=== PATIENT | male | born 1950 | race Caucasian/White ===

== ENCOUNTER → 2018-04-07 | Outpatient (CLI) | payer MEDICARE, OTHER ==
--- NOTE | 2018-04-07 12:45 | RADIOLOGY REPORT (SQ) ---
EXAM DESCRIPTION: MRI LUMBAR SPINE WITHOUT COMPLETED DATE/TIME: 04/07/2018 12:23 pm REASON FOR STUDY: LOW BACK PAIN M54.5 LOW BACK PAIN COMPARISON: None. TECHNIQUE: Sagittal and Axial imaging includes T1, T2, STIR and gradient echo sequences. Coronal T2/ HASTE imaging. LIMITATIONS: None. FINDINGS: VISUALIZED UPPER ABDOMEN: Limited evaluation. No acute or suspicious findings suggested. SEGMENTATION: No transitional anatomy. The lowest well-developed disc space is labeled L5-S1. ALIGNMENT: Anatomic. VERTEBRAE: Intact. BONE MARROW: Normal. No marrow replacement or reactive changes. DISC SIGNAL: Diffuse decreased T2 weighted intervertebral disc signal. Disc space loss of height at L2-3 and L5-S1 POSTERIOR ELEMENTS: Degenerative spondylolysis is present on the right at L5. HARDWARE: None in the spine. CORD AND CONUS: Normal in size and signal intensity. Conus at the L1 level. SOFT TISSUES: No aortic aneurysm seen. No bulky retroperitoneal adenopathy or mass. No paraspinal mas s or fluid. T10-11: At the upper edge of the field of view. Borderline central canal narrowing and high-grade b ilateral foraminal narrowing results from disc bulging and facet hypertrophy. T11-12: Broad diffuse posterior disc bulging and bulky bilateral facet hypertrophy cause mild centra l canal narrowing and moderate bilateral foraminal narrowing. T12-L1: Unremarkable L1-L2: Mild bilateral facet hypertrophy without central or foraminal encroachment L2-L3: Broad diffuse posterior disc bulging and moderate bilateral facet and ligament hypertrophy are present. No central stenosis. Moderate right, mild left inferior foraminal narrowing without exiti ng L2 nerve root impingement. L3-L4: Broad diffuse posterior disc bulging and moderate bilateral facet and ligament hypertrophy are present left greater than right. No central canal narrowing or significant right foraminal narrowin g. Mild left foraminal narrowing without exiting L3 nerve root impingement. L4-L5: Right foraminal and lateral disc herniation is present with small foraminal annular tear. The se abuts the undersurface of the right L4 nerve root in the neural foramen with partial effacement of the fat around the right L4 nerve root. These changes are best shown on axial images 21-24, and sag ittal images 3 and 4. Elsewhere at L4-5, mild diffuse posterior disc bulging and moderate bilateral facet and ligament hype rtrophy is present without central canal or left foraminal narrowing. L5-S1: Right degenerative spondylolysis without listhesis. Bilateral facet arthropathy. No central or foraminal encroachment. SACRUM: Visualized upper sacrum intact. OTHER: No other significant findings. IMPRESSION: Tiny right foraminal and lateral disc herniation with annular tear, abutting the undersu rface of the right L4 nerve root in the neural foramen. 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
== END ==
LOC: RAD 10:31
PROVIDERS: ATTEND Physician Assistant
DX: M51.26 Other intervertebral disc displacement, lumbar region (principal); M47.896 Other spondylosis, lumbar region
CPT/HCPCS: 72148